=== PATIENT | male | born 1955 | race Caucasian/White ===

== ENCOUNTER 2016-11-03 12:09 | Emergency (ER) | payer OTHER ==
[~2016-11-03] VITALS: Ht 170.2 cm; Wt 59.0 kg
[2016-11-03 12:10] VITALS: BP 157/100; PULSE 106; RESP 20; TEMP 97.9; O2SAT 94
--- NOTE | 2016-11-03 12:20 | PD ---
Physical Exam Date Seen by Provider: Nov 03, 2016 Time Seen by Provider: 12:18 Narrative 60 YOWM PSYCH EVAL MED CLEARANCE FOR DETOX. BP ELEVATED. NO SI OR HI VS REVIEWED WAITING FOR BED PLACEMENT Data Data Last Documented VS Vital Signs Date Time Temp Pulse Resp B/P Pulse Ox O2 Delivery O2 Flow Rate FiO2 11/03/16 12:10 97.9 106 20 157/100 94 MDM Supervised Visit with MAXIMILIAN: No Scripts No Active Prescriptions or Reported Meds Andry Geiger Nov 03, 2016 12:20
--- NOTE | 2016-11-03 14:48 | PD ---
HPI Chief Complaint: Medical Clearance Time Seen by Provider: 14:48 Travel History International Travel<30 days: No Contact w/Intl Traveler<30days: No Traveled to known affect area: No History of Present Illness HPI 60-year-old male with long-standing history of alcohol dependency presents to the emergency today for medical clearance for detox through the [facility]. Patient was seen and evaluated by his primary care provider today who was concerned because the patient has not eaten in the last 3 days, he has felt weak. Patient states he did fall one time last week striking his head. He did not seek evaluation for this. Patient denies any focal deficits. Patient reports up to 8 beers daily. His last alcoholic beverage was this morning. He states he has been trying to stop on his own but is unable to. Denies any chest tightness. No difficulty breathing. No recent illnesses, fever, or chills. Patient has no other symptoms to report at this time. PFSH Past Medical History Arthritis: Yes Cerebrovascular Accident: Yes (TIA) Diminished Hearing: No Hypertension: Yes Past Surgical History Eye Surgery: Yes Social History Alcohol Use: Yes (BEER DAILY) Tobacco Use: Yes (1/2 PPD) Substance Use: No Allergies-Medications (Allergen,Severity, Reaction): Coded Allergies: No Known Allergies (Unverified , 11/03/16) Reported Meds & Prescriptions Reported Meds & Active Scripts Active No Active Prescriptions or Reported Medications Review of Systems Except as stated in HPI: all other systems reviewed are Neg Physical Exam Narrative GENERAL: We'll attempt disheveled male patient, sitting up in bed, no acute distress. SKIN: Focused skin assessment warm/dry. HEAD: Atraumatic. Normocephalic. EYES: Pupils equal and round. Disconjugated. No scleral icterus. No injection or drainage. ENT: No nasal bleeding or discharge. Mucous membranes pink and moist. NECK: Trachea midline. No JVD. CARDIOVASCULAR: Tachycardic rate and rhythm. RESPIRATORY: No accessory muscle use. Coarse, diminished bases to auscultation. Breath sounds equal bilaterally. GASTROINTESTINAL: Abdomen soft, non-tender, nondistended. Hepatic and splenic margins not palpable. MUSCULOSKELETAL: No obvious deformities. No clubbing. No cyanosis. No edema. NEUROLOGICAL: Awake and alert. No obvious cranial nerve deficits. Motor grossly within normal limits. Normal speech. Data Data Last Documented VS Vital Signs Date Time Temp Pulse Resp B/P Pulse Ox O2 Delivery O2 Flow Rate FiO2 11/03/16 15:13 77 18 11/03/16 15:12 97 Room Air 11/03/16 12:10 97.9 157/100 Orders Complete Blood Count With Diff (11/03/16 14:55) Comprehensive Metabolic Panel (11/03/16 14:55) Thyroid Stimulating Hormone (11/03/16 14:55) Urinalysis - C+S If Indicated (11/03/16 14:55) Electrocardiogram (11/03/16 14:55) Oximetry (11/03/16 14:55) Iv Access Insert/Monitor (11/03/16 14:55) Ecg Monitoring (11/03/16 14:55) Drug Screen, Random Urine (11/03/16 14:55) Alcohol (Ethanol) (11/03/16 14:55) Sodium Chlor 0.9% 1000 Ml Inj (Ns 1000 M (11/03/16 15:00) Ct Brain W/O Iv Contrast(Rout) (11/03/16 ) Labs Laboratory Tests Test 11/03/16 15:12 White Blood Count 4.0 TH/MM3 Red Blood Count 4.55 MIL/MM3 Hemoglobin 14.7 GM/DL Hematocrit 42.7 % Mean Corpuscular Volume 93.9 FL Mean Corpuscular Hemoglobin 32.3 PG Mean Corpuscular Hemoglobin 34.4 % Concent Red Cell Distribution Width 13.1 % Platelet Count 99 TH/MM3 Mean Platelet Volume 8.9 FL Neutrophils (%) (Auto) 60.4 % Lymphocytes (%) (Auto) 24.5 % Monocytes (%) (Auto) 12.8 % Eosinophils (%) (Auto) 1.4 % Basophils (%) (Auto) 0.9 % Neutrophils # (Auto) 2.4 TH/MM3 Lymphocytes # (Auto) 1.0 TH/MM3 Monocytes # (Auto) 0.5 TH/MM3 Eosinophils # (Auto) 0.1 TH/MM3 Basophils # (Auto) 0.0 TH/MM3 CBC Comment AUTO DIFF Differential Comment AUTO DIFF CONFIRMED Platelet Estimate LOW Platelet Morphology Comment NORMAL Sodium Level 130 MEQ/L Potassium Level 4.0 MEQ/L Chloride Level 92 MEQ/L Carbon Dioxide Level 26.3 MEQ/L Anion Gap 12 MEQ/L Blood Urea Nitrogen 6 MG/DL Creatinine 0.63 MG/DL Estimat Glomerular Filtration 129 ML/MIN Rate Random Glucose 84 MG/DL Calcium Level 9.0 MG/DL Total Bilirubin 0.6 MG/DL Aspartate Amino Transf 59 U/L (AST/SGOT) Alanine Aminotransferase 28 U/L (ALT/SGPT) Alkaline Phosphatase 84 U/L Total Protein 8.9 GM/DL Albumin 3.3 GM/DL Thyroid Stimulating Hormone 2.490 uIU/ML 3rd Gen Ethyl Alcohol Level LESS THAN 3 MG/DL MDM Medical Decision Making Medical Screen Exam Complete: Yes Emergency Medical Condition: Yes Medical Record Reviewed: Yes Differential Diagnosis Alcohol dependency versus withdrawal versus substance abuse versus mood disorder versus personality disorder versus electrolyte abnormality Narrative Course 60-year-old male presents to emergency department for medical clearance for [facility] detox. Patient is without distress. CBC is without acute concern. CMP is with a hyponatremia 1:30. AST is slightly elevated at 59. Other lab work is without acute concern. EtOH is less than 3. CT of the brain shows no acute hemorrhage or mass effect. Atrophy and chronic small vessel ischemic changes noted. Patient is medically cleared to return to [facility] detox. He will be discharged at this time. Diagnosis Primary Impression: Alcohol dependence Qualified Code: F10.29 - Alcohol dependence with unspecified alcohol-induced disorder Referrals: [facility] (Out patient) Primary Care Physician Patient Instructions: Alcohol Dependence (ED), General Instructions Additional Instructions: Go to the [facility] for your detox program Follow-up with a primary care provider Return immediately with any acute worsening of symptoms Med/Other Pt SpecificInfo: No Change to Meds Scripts No Active Prescriptions or Reported Meds Disposition: 01 DISCHARGE HOME Condition: Stable Jillian Hinson Nov 03, 2016 14:48
[2016-11-03] MEDS ORDERED: SODIUM CHLOR 0.9% 1000 ML INJ 1,000 ML IV ONE (15:00)
[2016-11-03 15:12] VITALS: RESP 18; O2SAT 97
--- NOTE | 2016-11-03 15:42 | RADRPT ---
EXAM DATE/TIME: 11/03/2016 15:31 [facility] COMPARISON: No previous studies available for comparison. INDICATIONS : Altered mental status. RADIATION DOSE: 30.74 CTDIvol (mGy) MEDICAL HISTORY : Hypertension. SURGICAL HISTORY : None. ENCOUNTER: Initial ACUITY: 1 day PAIN SCALE: 0/10 LOCATION: cranial TECHNIQUE: Multiple contiguous axial images were obtained of the head. Using automated exposure control and adj ustment of the mA and/or kV according to patient size, radiation dose was kept as low as reasonably a chievable to obtain optimal diagnostic quality images. DICOM format image data is available electro nically for review and comparison. FINDINGS: CEREBRUM: There is diffuse moderate atrophic change with sulcal and ventricular prominence. Mild chronic small vessel ischemic change is present. No evidence of midline shift, mass lesion, hemorrhage or acute inf arction. No extra-axial fluid collections are seen. POSTERIOR FOSSA: The cerebellum and brainstem are intact. The 4th ventricle is midline. The cerebellopontine angle i s unremarkable. EXTRACRANIAL: The visualized portion of the orbits is intact. SKULL: The calvaria is intact. No evidence of skull fracture. CONCLUSION: 1. No acute hemorrhage or mass effect. 2. Atrophy and chronic small vessel ischemic change. Karthik Wiseman MD on November 03, 2016 at 15:40 Board Certified Radiologist. This report was verified electronically.
[2016-11-03 16:00] LABS: AUTOMATED NEUTROPHIL # 2.4 TH/MM3 (1.8-7.7); BASOPHIL % 0.9 % (0.0-2.0); EOSINOPHIL # 0.1 TH/MM3 (0-0.4); EOSINOPHIL % 1.4 % (0.0-4.0); HEMATOCRIT 42.7 % (39.0-51.0); LYMPH % 24.5 % (9.0-44.0); MEAN CELL VOLUME 93.9 FL (80.0-100.0); MEAN CORPUSCULAR HEMOGLOBIN 32.3 PG (27.0-34.0); MEAN CORPUSCULAR HGB CONC 34.4 % (32.0-36.0); MONO % 12.8 % (0.0-8.0); NEUT % 60.4 % (16.0-70.0); PLATELET COUNT 99 TH/MM3 (150-450); RED BLOOD COUNT 4.55 MIL/MM3 (4.50-5.90); RED CELL DISTRIBUTION WIDTH 13.1 % (11.6-17.2)
[2016-11-03 16:14] LABS: ANION GAP 12 MEQ/L (5-15); AST (GOT) 59 U/L (15-37); BICARBONATE 26.3 MEQ/L (21.0-32.0); BLOOD UREA NITROGEN 6 MG/DL (7-18); CHLORIDE 92 MEQ/L (98-107); GLOMERULAR FILTRATION RATE 129 ML/MIN (>89); SODIUM (NA) 130 MEQ/L (136-145)
[2016-11-03 16:20] LABS: ALKALINE PHOSPHATASE 84 U/L (45-117); ALT (GPT) 28 U/L (12-78); TOTAL BILIRUBIN ADULT 0.6 MG/DL (0.2-1.0)
[2016-11-03 16:28] LABS: ALCOHOL LESS THAN 3 MG/DL (0-5)
[2016-11-03 16:46] LABS: HEMO FLAGS AUTO DIFF; PLATELET ESTIMATE SMEAR LOW (NORMAL); PLATELET MORPHOLOGY NORMAL (NORMAL); SCAN/DIFF AUTO DIFF CONFIRMED
--- NOTE | 2016-11-04 09:14 | EKG ---
Date Performed: 11/03/2016 Time Performed: 15:09:21 PTAGE: 60 years EKG: Sinus rhythm NORMAL ECG NO PREVIOUS TRACING DOCTOR: Ole Costa Interpretating Date/Time 11/04/2016 09:13:05
== END 2016-11-03 18:11 | disposition home or self-care (01) ==
LOC: NEPD 12:09
DX: F10.20 Alcohol dependence, uncomplicated (principal); E87.1 Hypo-osmolality and hyponatremia; R00.0 Tachycardia, unspecified; M13.88 Other specified arthritis, other site; I10 Essential (primary) hypertension; F17.200 Nicotine dependence, unspecified, uncomplicated; Z86.73 Personal history of transient ischemic attack (TIA), and cerebral infarction without residual deficits
CPT/HCPCS: 70450; 80053; 80307; 84443; 85025; 93005; 96360; 99285; J7030

== ENCOUNTER 2017-03-29 19:01 | Emergency (ER) | payer OTHER ==
[2017-03-29 19:02] VITALS: BP 165/101; PULSE 92; RESP 16; TEMP 97.9; O2SAT 95
--- NOTE | 2017-03-29 20:14 | RADRPT ---
EXAM DATE/TIME: 03/29/2017 19:56 [facility] COMPARISON: No previous studies available for comparison. INDICATIONS : Posterior left elbow pain and swelling. Paient fell 1 week ago. MEDICAL HISTORY : None. SURGICAL HISTORY : None. ENCOUNTER: Initial ACUITY: 1 week PAIN SCORE: 5/10 LOCATION: Left posterior elbow. FINDINGS: Multiple view examination of the left elbow demonstrates no joint effusion, or fracture. Soft tissue swelling overlying the olecranon The osseous structures are in normal alignment. Bony mineralizatio n is normal. CONCLUSION: Unremarkable examination of the left elbow except for soft tissue swelling overlying the olecranon wi th a few small bone fragments at the triceps insertion. Deo Katz MD on March 29, 2017 at 20:11 Board Certified Radiologist. This report was verified electronically.
[2017-03-29] MEDS ORDERED: IBUP-232 PO (22:00)
--- NOTE | 2017-03-29 22:05 | PD ---
HPI Chief Complaint: Skin Problem Time Seen by Provider: 21:35 Travel History International Travel<30 days: No Contact w/Intl Traveler<30days: No Traveled to known affect area: No History of Present Illness HPI 61-year-old male presents the emergency department with worsening left elbow pain and swelling over the past 3 weeks. Patient states he slipped and fell outside a [facility] striking his right elbow on the concrete. Since that time the patient has had ongoing discomfort which has waxed and waned over the last 3 weeks. Patient states when he places his elbow on a table it is very painful and has become swollen in the last 2 days. Denies fever, chills, or other symptoms. There's been no drainage from the area. Pain is currently 8 out of 10. She has not taken anything for it. He denies numbness, tingling, or weakness. He has no known drug allergies. PFSH Past Medical History Arthritis: Yes Cerebrovascular Accident: Yes (TIA) Diminished Hearing: No Hepatitis: Yes (c) Hypertension: Yes Past Surgical History Eye Surgery: Yes Social History Alcohol Use: Yes (BEER DAILY) Tobacco Use: Yes (1 PPD) Substance Use: No Allergies-Medications (Allergen,Severity, Reaction): Coded Allergies: No Known Allergies (Unverified Adverse Reaction, Unknown, 03/29/17) Reported Meds & Prescriptions Reported Meds & Active Scripts Active Ibuprofen 600 Mg Tab 600 Mg PO Q6H PRN Review of Systems Except as stated in HPI: all other systems reviewed are Neg General / Constitutional: No: Fever Eyes: No: Visual changes HENT: No: Headaches Cardiovascular: No: Chest Pain or Discomfort Respiratory: No: Shortness of Breath Gastrointestinal: No: Abdominal Pain Genitourinary: No: Dysuria Musculoskeletal: Positive: Arthralgias, Limited ROM, Edema (see history present illness), Pain Skin: No Rash Neurologic: No: Weakness Psychiatric: No: Depression Endocrine: No: Polydipsia Hematologic/Lymphatic: No: Easy Bruising Physical Exam Narrative GENERAL: Patient appears in mild distress. SKIN: Warm and dry. Normal color. Normal turgor. Patient has obvious swelling over the left olecranon. There is no heat or increased erythema or signs of infection. HEAD: Atraumatic. Normocephalic. EYES: Pupils equal and round. No scleral icterus. No injection or drainage. ENT: No nasal bleeding or discharge. Mucous membranes pink and moist. NECK: Trachea midline. No JVD. CARDIOVASCULAR: Regular rate and rhythm. RESPIRATORY: No accessory muscle use. Clear to auscultation. Breath sounds equal bilaterally. GASTROINTESTINAL: Abdomen soft, non-tender, nondistended. Hepatic and splenic margins not palpable. MUSCULOSKELETAL: Extremities without clubbing, cyanosis, or edema. No obvious deformities. Left elbow is limited range of motion secondary to pain. There is no weakness. NEUROLOGICAL: Awake and alert. No obvious cranial nerve deficits. Motor grossly within normal limits. Five out of 5 muscle strength in the arms and legs. Normal speech. PSYCHIATRIC: Appropriate mood and affect; insight and judgment normal. Data Data Last Documented VS Vital Signs Date Time Temp Pulse Resp B/P (MAP) Pulse Ox O2 Delivery O2 Flow Rate FiO2 03/29/17 19:02 97.9 92 16 165/101 (122) 95 Room Air Orders Orders Elbow, Complete (4 Vws) (03/29/17 ) [facility] Medical Decision Making Medical Screen Exam Complete: Yes Emergency Medical Condition: Yes Differential Diagnosis Left elbow contusion. L elbow bursitis. Fracture. Narrative Course X-rays ordered in triage. X-ray showed no obvious fracture but soft tissue swelling consistent with olecranon bursitis. There is no free air. Patient is placed in an Mason wrap, and given ibuprofen 600 mg 4 times a day #40. Patient is to use ice to the area frequently through the day. Patient is to follow up if symptoms do not improve or worsen over the next 2 weeks. Diagnosis Primary Impression: Olecranon bursitis of left elbow Referrals: [facility] Patient Instructions: Elbow Bursitis (ED), Elbow Bursitis Exercises (GEN), General Instructions Additional Instructions: X-ray showed no obvious fracture but soft tissue swelling consistent with olecranon bursitis. There is no free air. Patient is placed in an Mason wrap, and given ibuprofen 600 mg 4 times a day #40. Patient is to use ice to the area frequently through the day. Patient is to follow up if symptoms do not improve or worsen over the next 2 weeks. Med/Other Pt SpecificInfo: Prescription(s) given Scripts Ibuprofen (Ibuprofen) 600 Mg Tab 600 MG PO Q6H Y for Pain/Inflammation, #40 TAB 0 Refills Prov: Highet,Ruth Ann H. MD 03/29/17 Disposition: 01 DISCHARGE HOME Condition: Stable Donny Salas Mar 29, 2017 22:05
== END 2017-03-29 22:34 | disposition home or self-care (01) ==
LOC: NEPK 19:01
DX: M70.32 Other bursitis of elbow, left elbow (principal); I10 Essential (primary) hypertension; Z72.0 Tobacco use; Z72.89 Other problems related to lifestyle
CPT/HCPCS: 73080; 99283